=== PATIENT | male | born 1995 | race Caucasian/White ===

== ENCOUNTER 2025-03-05 15:16 | Outpatient (AMB) | payer OTHER, SELFPAY ==
--- NOTE | 2025-03-05 13:03 | A.OFFPC_ITS ---
Vital Signs 03/05/25 15:25 Height 6 ft 0.44 in Weight 216 lb BMI 28.9 BP 122/68 Blood Pressure Location Lt brachial Position Sitting Respiration 18 Pulse 81 Pulse Source Pulse Oximeter Temp 97.3 F Temp Source Temporal Artery Scan Pulse Oximetry (%) 98 Oxygen Delivery Method Room Air Intake Visit Reasons: New Patient Cost Estimator Required: No Accompanied by: Self / Same As Patient Allergies No Known Allergies Allergy (Verified 03/05/25 13:03) Tobacco use date assessed: 03/05/25 Dental Screening Dental Screen Date: 03/05/25 Did you have a dental visit in the last 12 months?: Yes Did you have a dental problem in the last 6 months where you did not have access to dental care?: No Was dental information given to patient?: Yes HPI HPI Comments History of Present Illness Details The patient is a 30-year-old male presenting for a new patient physical examination. He has no chronic medical conditions. His surgical history is significant for a right inguinal hernia repair in 2017. There is no family history of diabetes, heart disease, or cancer. The patient denies ever smoking tobacco. He reports occasional alcohol use, having one or two drinks every two weeks. He has used marijuana in the past but denies current use and denies any history of heroin or cocaine use. He is sexually active. Medical History: - No chronic medical conditions reported . Surgical History: - Right inguinal hernia repair (2017) Family History: - No family history of diabetes, heart d isease, or cancer. Social History: - Tobacco: Denies ever smoking. - Alcohol: Reports occasional use, consu more 1-2 drinks once every two weeks. - Illicit Drug Use: Reports past marijua na use but denies current use; denies heroin or cocaine use. 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 - Housing: Reports a stable living situa tion. 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 1. Little interest or pleasure in doing things: not at all 2. Feeling down, depressed, or hopeless: not at all 3. Trouble falling or staying asleep, or sleeping too much: not at all 4. Feeling tired or having little energy: not at all 5. Poor appetite or overeating: not at all 6. Feeling bad about yourself - or that you are a failure or have let yourself or your family down: not at all 7. Trouble concentrating on things, such as reading the newspaper or watching television: not at all 8. Moving or speaking so slowly that other people could have noticed. Or the opposite - being so fidgety or restless that you have been moving around a lot more than usual: not at all 9. Thoughts that you would be better off or of hurting yourself in some way: not at all Total score: 0 Depression Screening Interpretation: Negative Depression Screening Done: Yes 34900 - PHQ-9 Billing: Yes Source: Developed by Drs. Fam Davenport, Christa Whitman, Irvin Clemons and colleagues, with an educational willow from [employer]. Thrive Questionnaire Date Thrive assessed: 03/05/25 I am a: Patient What is your living situation today?: I have a steady place to live Within the past 12 months, did the food you bought not last and you didn't have the money to get more?: Never true Within the past 12 months, did you worry whether your food would run out before you got money to buy more?: Never true Do you have trouble paying for medicines?: No Do you have trouble getting transportation to medical appointments?: No Do you have trouble paying your heating and electricity bill?: No Do you have trouble taking care of your child, family member or friend?: No Do you have trouble with day-to-day activities such as bathing, preparing meals, shopping, managing finances, etc.?: No Are you currently unemployed and looking for a job?: No Are you interested in more education?: No THRIVE Score: 0 AUDIT C Alcohol Use Questionnaire (AUDIT-C) 1. How often do you have a drink containing alcohol?: 2-3 times a week 2. How many drinks containing alcohol do you have on a typical day when you are drinking?: 1 or 2 3. How often do you have six or more drinks on one occasion?: Never Total Score: 3 Score Reviewed/Action Taken: Yes MAIN-7 AMB Questionnaire MAIN-7 Date MAIN - 7 assessed: 03/05/25 Feeling nervous, anxious, or on edge: 0 = Not at all Not being able to stop or control worryin = Not at all Worrying too much about different things: 0 = Not at all Trouble relaxin = Not at all Being so restless that it is hard to sit still: 0 = Not at all Becoming easily annoyed or irritable: 0 = Not at all Feeling afraid as if something awful might happen: 0 = Not at all Total MAIN-7 score (0-4 normal; 5-9 mild; 10-14 moderate; 15-21 severe): 0 Source: Developed by Drs. Fam Davenport, Christa Whitman, Irvin Clemons and colleagues, with an educational willow from [employer]. MAIN-7 Assessment Billing MAIN-7 Assessment Tool: MAIN-7 Assessment 54143 Review of Systems Narrative - General: Denies any complaints. - Cardiovascular: Denies chest pain. - Respiratory: Denies shortness of breath. - Gastrointestinal: Reports normal bowel movements. Denies nausea or vomiting. - Genitourinary: Reports normal urination. - Psychological: Reports a good mood. Denies anxiety or depression. - All other systems reviewed and are negative. All systems reviewed & are unremarkable except as reviewed in HPI and above Physical exam (Primary Care) Vital Signs: Last Vital Signs Temp 97.3 F 03/05/25 15:25 Pulse 81 03/05/25 15:25 Resp 18 03/05/25 15:25 BP 122/68 03/05/25 15:25 Pulse Ox 98 03/05/25 15:25 Oxygen Delivery Method Room Air 03/05/25 15:25 BMI result Body Mass Index 28.9 Tobacco/Smoking Status: Tobacco use Status Tobacco use date assessed 03/05/25 03/05/25 13:04 Patient Tobacco Use Status Never used Tobacco 03/05/25 15:28 e-Cigarette/Vaping Use Never Used 03/05/25 15:28 Depression Screening Interpretation: Negative Narrative General: Alert and oriented, Well nourished, No acute distress. Eye: Pupils are equal, round and reactive to light, Intact accommodation, Extraocular movements are intact, Normal conjunctiva, Vision unchanged. HENT: Normocephalic, Atraumatic, Tympanic membranes are clear, Normal hearing, Oral mucosa is moist, No pharyngeal erythema, Ear canals patent. Respiratory: Lungs CTA bilaterally, No wheeze, Respirations are non-labored. Cardiovascular: Regular rate, Regular rhythm, S1 auscultated, S2 auscultated, No murmur, Good pulses equal in all extremities, Normal peripheral perfusion, No edema. Gastrointestinal: Soft, Non-tender, Non-distended, Normal bowel sounds, No organomegaly. Musculoskeletal: Normal range of motion, Normal strength, No tenderness, No swelling, No deformity, Normal gait. Integumentary: Warm, Dry, [place], Intact. Neurologic: Alert, Oriented, Normal sensory, Normal motor function, No focal defects, Cranial Nerves II-XII are grossly intact, Normal deep tendon reflexes. Psychiatric: Cooperative, Appropriate mood & affect, Normal judgment. A separately identifiable, medically necessary problem-oriented evaluation and management service was performed in addition to the preventive exam. The preventive portion addressed age-appropriate screening, risk assessment, and counseling, while the problem-oriented portion involved evaluation and management of [specific condition(s)] including history, focused exam, diagnostic planning, and treatment recommendations. Coding Level of Care Code New Pt Level 2 (96123) New Pt Prev Care 18-39yr(93187 Diagnoses Annual physical exam Z00.00 Establishing care with new doctor, encounter for Z76.89 Additional Codes PHQ-9 - 46132 - PHQ-9 Billing: Yes ([id number]) MAIN-7 Assessment Billing - MAIN-7 Assessment Tool: MAIN-7 Assessment 76363 ([id number]) Comment [id number] Assessment & Plan Assessment & Plan (1) Annual physical exam: Comment: - The patient is a healthy 30-year-old male with no active complaints. - Plan includes ordering screening lab work, including CBC, electrolytes, lipids, cholesterol, HIV, hepatitis, syphilis, and vitamin D. - The patient was advised to obtain influenza and COVID-19 vaccinations. - He was encouraged to continue his healthy diet and exercise habits. - Lab results will be communicated via the patient portal. - No follow-up appointment is scheduled at this time. Code(s): Z00.00 - Encounter for general adult medical examination without abnormal findings Category: Medical (2) Establishing care with new doctor, encounter for: Code(s): Z76.89 - Persons encountering health services in other specified circumstances Category: Medical Plan: Health Maintenance: - Ordered screening labs: blood counts, electrolytes, lipids, cholesterol, HIV, hepatitis, syphilis, and vitamin D. - Recommended receiving flu and COVID-19 vaccinations. - Advised to continue healthy eating and regular exercise. Patient was informed and verbally consented to the use of an ambient scribe for clinic note documentation during this visit. Plan I discussed with the patient that he is very healthy with no active complaints or concerns. I explained the plan to order routine screening labs and that I would communicate the results via the patient portal, which I instructed him on how to set up. I recommended he obtain his annual flu shot and a COVID shot. I advised no follow-up appointment is necessary at this time but encouraged him to reach out via phone or the portal if any issues arise. Orders: Orders Comprehensive Met. Panel Today Z00.00 - Encounter for general adult medical examination without abnormal findings Hepatitis A,B,C Profile Today Z00.00 - Encounter for general adult medical examination without abnormal findings Microalbumin, Random (w Creat) Today Z00.00 - Encounter for general adult medical examination without abnormal findings Complete Blood Count Auto Diff Today Z00.00 - Encounter for general adult medical examination without abnormal findings Hemoglobin A1c Today Z00.00 - Encounter for general adult medical examination without abnormal findings HIV Ab/Ag Today Z00.00 - Encounter for general adult medical examination without abnormal findings Lipid Panel Today Z00.00 - Encounter for general adult medical examination without abnormal findings Syphilis Screen Today Z00.00 - Encounter for general adult medical examination without abnormal findings TSH reflex Free T4 Today Z00.00 - Encounter for general adult medical examination without abnormal findings Vitamin D 25-OH Total Today Z00.00 - Encounter for general adult medical examination without abnormal findings Patient Instructions: - Go to the lab across the street to have your blood drawn. - Use the QR code to create an account on the patient portal so you can see your lab results. - Get your flu shot and COVID shot, which are available at pharmacies. - Continue to eat healthy and keep exercising. - You do not have a follow-up appointment scheduled. Please call the office or message us through the portal if you have any concerns in the future.
[2025-03-05 15:25] VITALS: BP 122/68; PULSE 81; RESP 18; TEMP 36.3; O2SAT 98; BMI 28.9
--- OUTSIDE RECORDS SUMMARY | 2025-03-05 18:15 | XMS_ITS ---
Author Name [facility] Organization Unknown Care Team Organization Name Specialty Phone Email Start Date End Da te [facility] Oziel Duong DO Primary Care 09/04/202211/28 [facility] Yuly Rob Primary Care 03/07/202211/28
== END 2025-03-05 15:39 | disposition home or self-care (01) ==
LOC: HO.HMCHD 15:17
PROVIDERS: PCP Student in an Organized Health Care Education/Training Program; Visit Provider Student in an Organized Health Care Education/Training Program
DX: Z00.00 Encounter for general adult medical examination without abnormal findings (principal); Z76.89 Persons encountering health services in other specified circumstances

== ENCOUNTER → 2025-03-05 15:16 | Outpatient (BNVA) | payer OTHER, SELFPAY | PROVIDERS: PCP Student in an Organized Health Care Education/Training Program; Visit Provider Student in an Organized Health Care Education/Training Program | DX: Z00.00 Encounter for general adult medical examination without abnormal findings (principal); Z13.31 Encounter for screening for depression; Z13.39 Encounter for screening examination for other mental health and behavioral disorders | CPT/HCPCS: 96127 ==

== ENCOUNTER 2025-03-06 07:06 | Outpatient (REF) | payer OTHER, SELFPAY ==
[2025-03-06 07:19] LABS: MANUAL DIFF FLAG NO
[2025-03-06 08:06] LABS: Hematocrit 44.5 % (42.0-52.0); Hemoglobin 14.8 g/dl (14.0-18.0); Imm Gran Abs Auto 0.02 X10*3/uL (0.00-0.03); Imm Gran Pct Auto 0.4 % (0.0-0.4); Lymphocytes Absolute Auto 1.5 X10*3/uL (1.2-4.9); Mean Corpuscular HGB Conc 33.3 g/dl (31.0-36.0); Mean Corpuscular Hemoglobin 30.1 pg (27.0-33.0); Mean Corpuscular Volume 90.4 fL (80.0-98.0); NRBC Abs Auto 0.000 X10*3/uL (0.0-0.012); NRBC Pct Auto 0.0 /100WBC (0.0-0.2); Platelet Count 245 X10*3/uL (160-400); Red Blood Count 4.92 X10*6/uL (4.60-5.80); White Blood Count 5.5 X10*3/uL (4.8-10.8)
[2025-03-06 08:42] LABS: Alanine Aminotransferase 38 U/L (0-40); Albumin Level 4.7 g/dL (3.5-5.0); Alkaline Phosphatase 112 U/L (39-117); Anion Gap 10 (12-20); Aspartate Amino Transferase 25 U/L (5-37); Blood Urea Nitrogen 14 mg/dL (9-16); Calcium 9.2 mg/dL (8.4-10.2); Carbon Dioxide 29 mmol/L (22-29); Chloride 104 mmol/L (96-108); Cholesterol 113 mg/dL (<200); Estimated Glomerular Filt Rate > 60; HDL Cholesterol 30 mg/dL (>40); Potassium 4.4 mmol/L (3.3-5.1); Sodium 139 mmol/L (135-145); Total Protein 7.5 g/dL (6.5-8.0); Triglycerides 116 mg/dL (<150)
[2025-03-06 08:49] LABS: Syphilis Screen Nonreactive (Nonreactive)
[2025-03-06 08:50] LABS: HBS Num1 0.10 mIU/mL (0-7.99); HBc Num1 0.09 S/CO (0.00-0.79); HBsAGNum1 0.40 S/CO (0.00-0.99); HIV Num 1 0.55 S/CO (0.00-0.99); Hepatitis A Antibody IgM 0.19 Index (0-0.79); Hepatitis B Surface Antigen Negative (Negative); ~HepC Num1 0.07 S/CO (0.00-0.79); ~Hepatitis A Antibody IgM Nonreactive (Nonreactive); ~Hepatitis B Surface Antibody NONREACTIVE (Nonreactive); ~Hepatitis C Antibody Nonreactive (Nonreactive)
[2025-03-06 09:32] LABS: Microalbum/Creatinine Ratio Ur 3.2 ug/mg cr (<30)
== END 2025-03-06 07:07 | disposition home or self-care (01) ==
LOC: HO.LAB 07:06
PROVIDERS: PCP Student in an Organized Health Care Education/Training Program; Visit Provider Student in an Organized Health Care Education/Training Program
DX: Z00.00 Encounter for general adult medical examination without abnormal findings (principal); Z11.4 Encounter for screening for human immunodeficiency virus [HIV]; Z13.6 Encounter for screening for cardiovascular disorders; Z13.1 Encounter for screening for diabetes mellitus; Z13.29 Encounter for screening for other suspected endocrine disorder
CPT/HCPCS: 36415; 80053; 80061; 82043; 82306; 82570; 83036; 84443; 85025; 86704; 86706; 86709; 86780; 86803; 87340; 87389